=== PATIENT | female | born 1980 | race Caucasian/White ===

== ENCOUNTER → 2016-10-13 08:06 | Outpatient (CLI) | payer MEDICARE ==
--- NOTE | 2016-10-13 09:45 | NUR ---
Nutrition education for bariatric surgery: S: Pt states she has tried several prescription diet pills with limited success. Pt was unable to keept he weight off when she stopped taking the pills. Pt reports losing 100# during a time of great stress in her life; however, again she was unable to keep the lost weight off. Pt states she is following a 1500 kcal meal plan and walking now and has lost 10# in 2 weeks. Pt states she is not drinking sugary drinks. Pt is drinking water. Pts frequently craves pizza and ice cream and states she is trying not to eat these foods. Pts michael is supporting her on this weight loss journey. O: 36 year old female Ht: 5'4" Wt: 310# IBW: 120# +/-10% BMI: 53.2 PMH: Asthma, varicose veins, spinal stenosis Goal wt: 200# A: Pt has made some good changes to her eating habits and is now walking most days of the week. Pt has lost 10# and seems to be determined to keep working on losing weight before surgery. Reviewe pre/post of diet. Reviewed sample menus; protein supplements; stomach size and pouch stretching; no sweets/no carbonated drinks/no alcohol/no straws; no drinking with meals; staying hydrated with sips of water between meals. Pt with good understanding of information provided. Questions answered. Pt has realistice expectations for weight loss. Pt verbalizes understanding of all diet changes pre/post op. Pt also verbalizes a willingness to continue to participate in physical activity. Pt appears to have a high motivation to make the necessary diet changes to be successful with alf weight loss. P: Provided pt with printed diet information and RDN name and phone number. RDN will be available if needed. Thank you for the consult.
== END ==
LOC: D.FANS 08:06
DX: Z01.818 Encounter for other preprocedural examination (principal)

== ENCOUNTER → 2016-12-02 09:50 | Outpatient (CLI) | payer MEDICARE ==
[2016-12-02 10:52] LABS: BASOPHILS 0.5 % (0-2); EOSINOPHILS 1.8 % (0-7); HEMATOCRIT 40.3 % (36.0-48.0); HEMOGLOBIN 13.4 g/dL (12-16); IMMATURE GRANULOCYTES 0.2 % (0-5); LYMPHOCYTES 20.8 % (15-50); MCH 31.5 pg (26.0-34.0); MCHC 33.3 g/dL (31.0-37.0); MCV 94.6 fL (80.0-100.0); MEAN PLATELET VOLUME 10.9 fL (7.4-10.4); MONOCYTES 7.8 % (2-11); NEUTROPHILS 68.9 % (40-80); PLATELET COUNT 150 10x3/uL (130-400); RBC 4.26 10x6/uL (4.00-5.40); WBC 6.1 10x3/uL (4.8-10.8)
[2016-12-02 11:15] LABS: ALBUMIN 3.1 g/dL (3.4-5.0); ANION GAP 11.3 mmol/L (8-16); BILIRUBIN - DIRECT 0.09 mg/dL (0.00-0.30); BILIRUBIN - INDIRECT 0.22 mg/dL (0.00-1.00); BILIRUBIN - TOTAL 0.31 mg/dL (0.2-1.3); CALCIUM 8.6 mg/dL (8.5-10.1); CARBON DIOXIDE 25.7 mmol/L (21.0-32.0); CHOL - HDL RATIO 3.1 ratio (2.3-4.1); CREATININE - SERUM 0.9 mg/dL (0.6-1.3); LDL-HDL RATIO 1.9 ratio (1.5-3.5); PROTEIN - SERUM 7.3 g/dL (6.4-8.2); T4 THYROXINE 8.7 ug/dL (4.7-13.3); THYROID STIMULATING HORMONE 1.59 uIU/mL (0.36-3.74)
[2016-12-02 11:23] LABS: HELICOBACTER PYLORI IGG NEGATIVE (NEGATIVE)
[2016-12-03 09:17] LABS: FOLATE (FOLIC ACID) - SERUM >20.0 ng/mL (>3.0)
[2016-12-03 11:19] LABS: HELICOBACTER PYLORI IGM AB 5.4 units (0.0-8.9)
== END | disposition home or self-care (01) ==
LOC: D.LAB 09:50
PROVIDERS: Surgery
DX: Z00.00 Encounter for general adult medical examination without abnormal findings (principal); K21.9 Gastro-esophageal reflux disease without esophagitis; E78.5 Hyperlipidemia, unspecified; I10 Essential (primary) hypertension; E66.01 Morbid (severe) obesity due to excess calories

== ENCOUNTER → 2016-12-03 10:30 | Outpatient (CLI) | payer MEDICARE | END | disposition home or self-care (01) | LOC: D.RT 10:30 | DX: J45.909 Unspecified asthma, uncomplicated (principal) ==

== ENCOUNTER → 2017-01-11 08:29 | Outpatient (CLI) | payer MEDICARE, MEDICAID ==
[~2017-01-11 08:29] MED LIST: BREO ELLIPTA 11 EACH INH; BUPROPION XL150 MG PO; BUSPAR5 MG PO; ESTRACE2 MG PO; FLUTICASONE PRO16 GM NASAL; FUROSEMIDE20 MG PO; HYDROCODON-ACE1 EAC7 PO; LYRICA100 MG PO; LYRICA75 MG PO; NIZORAL 2 % CRE15 GM TOPICAL; OMEPRAZOLE40 MG PO; PAXIL40 MG PO; TOPAMAX50 MG PO; TRAZODONE HCL50 MG PO; TYLENOL W/CODEI1 TAB PO; VENTOLIN HFA18 GM INH; ZOCOR10 MG PO; ZOFRAN ODT4 MG/UDTAB PO; ZYPREXA10 MG PO
[2017-03-10 18:00] VITALS: BMI 58.3
== END | disposition home or self-care (01) ==
LOC: D.RAD 08:29
DX: E66.01 Morbid (severe) obesity due to excess calories (principal)

== ENCOUNTER 2017-01-19 06:03 | Day surgery (SDC) | payer MEDICARE, MEDICAID ==
[2017-01-19] MEDS ORDERED: LYRICA100 MG PO (06:54)
[2017-01-19] MEDS ORDERED: TYLENOL W/CODEI1 TAB PO (06:55)
[2017-01-19] MEDS ORDERED: ESTRACE2 MG PO (06:56)
[2017-01-19] MEDS ORDERED: OMEPRAZOLE40 MG PO (06:56)
[2017-01-19] MEDS ORDERED: FLUTICASONE PRO16 GM NASAL (06:56)
[2017-01-19] MEDS ORDERED: NIZORAL 2 % CRE15 GM TOPICAL (06:57)
[2017-01-19] MEDS ORDERED: VENTOLIN HFA18 GM INH (06:57)
[2017-01-19] MEDS ORDERED: TOPAMAX50 MG PO (06:58)
[2017-01-19] MEDS ORDERED: FUROSEMIDE20 MG PO (06:58)
[2017-01-19] MEDS ORDERED: BUSPAR5 MG PO (06:58)
[2017-01-19] MEDS ORDERED: ZYPREXA10 MG PO (06:58)
[2017-01-19] MEDS ORDERED: TRAZODONE HCL50 MG PO (06:59)
[2017-01-19] MEDS ORDERED: BUPROPION XL150 MG PO (06:59)
[2017-01-19] MEDS ORDERED: PAXIL40 MG PO (06:59)
[2017-01-19] MEDS ORDERED: LYRICA75 MG PO (07:00)
[2017-01-19] MEDS ORDERED: BREO ELLIPTA 11 EACH INH (07:00)
[2017-01-19 07:05] VITALS: BMI 57.3
[2017-01-19 07:22] LABS: HEMATOCRIT 34.8 % (36.0-48.0); HEMOGLOBIN 11.3 g/dL (12-16); MCH 31.7 pg (26.0-34.0); MCHC 32.5 g/dL (31.0-37.0); MCV 97.5 fL (80.0-100.0); MEAN PLATELET VOLUME 11.1 fL (7.4-10.4); RBC 3.57 10x6/uL (4.00-5.40); RDW 13.5 % (11.5-14.5); WBC 5.1 10x3/uL (4.8-10.8)
--- NOTE | 2017-01-19 10:38 | NUR ---
1025 DISCHARGE INSTRUCTIONS COMPLETE. PT HAS NO QUESTIONS OR CONCERNS AT THIS TIME. PT WAS VERY DROWSY AFTER KEEPING 30MIN. KEPT AN ADDITIONAL HOUR FOR PT TO DRINK COFFEE AND SODA BEFORE LEAVING. PT ESCORTED OUT BY VOLUNTEER.
--- NOTE | 2017-01-19 12:25 | OP ---
PATIENT NAME: PAVON MEDICAL RECORD: [id number] :76 LOCATION:D.OPS ADMISSION DATE: SURGEON: ABHINAV CLEMENTS MD DATE OF OPERATION: 01/19/2017 SURGEON: Abhinav Clements MD PREOPERATIVE DIAGNOSES: 1. Gastroesophageal reflux disease. 2. Essential hypertension. 3. Body mass index 50 to 59.9. 4. Morbid obesity. POSTOPERATIVE DIAGNOSES: 1. Gastroesophageal reflux disease. 2. Essential hypertension. 3. Body mass index 50 to 59.9. 4. Morbid obesity. PROCEDURE PERFORMED: EGD with biopsy. ANESTHESIA: Total intravenous anesthesia. COMPLICATIONS: None. SPECIMENS: 1. Duodenum. 2. Antrum. 3. Stomach. 4. GE junction. Case was contaminated. ESTIMATED BLOOD LOSS: Minimal. OPERATIVE COURSE: After consent was obtained, the patient was taken to the endoscopy suite. A timeout was taken to confirm the correct patient and procedure. Hurricaine Clayton was administered. A bite block was placed. The patient was placed in the left lateral decubitus position, total intravenous anesthesia was given. The scope was passed through the bite block, it was passed posterior to the epiglottis and under direct endoscopic vision, it was advanced through the esophagus and into the stomach. The stomach was insufflated. The scope was then passed through the pylorus into the duodenum. The duodenum appeared within normal limits. Multiple duodenal biopsies were taken. The scope was withdrawn to the pylorus. The prepyloric antral region was inspected. There was some mild antritis noted. Multiple cold biopsies were taken of the antrum. The stomach was inspected. There was some minimal gastritis noted. Multiple biopsies were taken of the stomach body. The scope was retroflexed. There was a small hiatal hernia noted. The scope was withdrawn to the level of the GE junction. There was some mild grade I linear ulcerations of the esophagus. There was minimal abnormality of the Z line. Multiple biopsies were taken of the GE junction. The scope was reinserted into the stomach. The stomach was desufflated. Next, the esophagus was examined upon withdrawal of the scope. There were no abnormalities of the esophagus identified. The scope was withdrawn. At the end of the case, all needle and OPERATIVE REPORT [id number] PAVON instrument counts were correct. No complications occurred. The patient tolerated the procedure well and was transferred to the recovery room in satisfactory condition. TRANSINT:[id number] Voice Confirmation ID: [id number] DOCUMENT ID: [id number] ABHINAV CLEMENTS MD at 1225 CC: [id number] DICTATION DATE: 01/19/17826 ACCOUNT DEVELOPER: 01/19/17 1108 [facility] [place] 01/19/17 [place] [id number]
[2017-03-08] MEDS ORDERED: ZOCOR10 MG PO (12:40)
== END 2017-01-19 10:25 | disposition home or self-care (01) ==
LOC: D.OPS 06:03
PROVIDERS: Surgery
DX: K21.9 Gastro-esophageal reflux disease without esophagitis (principal); E66.01 Morbid (severe) obesity due to excess calories; Z68.43 Body mass index [BMI] 50.0-59.9, adult; Z01.812 Encounter for preprocedural laboratory examination; J45.909 Unspecified asthma, uncomplicated

== ENCOUNTER 2017-03-09 08:00 | Inpatient (IN) | payer MEDICARE, MEDICAID ==
[2017-03-08 13:30] LABS: HEMATOCRIT 38.3 % (36.0-48.0); HEMOGLOBIN 12.4 g/dL (12-16); MCH 32.1 pg (26.0-34.0); MCHC 32.4 g/dL (31.0-37.0); MCV 99.2 fL (80.0-100.0); MEAN PLATELET VOLUME 11.3 fL (7.4-10.4); RBC 3.86 10x6/uL (4.00-5.40); RDW 13.4 % (11.5-14.5); WBC 5.6 10x3/uL (4.8-10.8)
[2017-03-08 13:42] LABS: ANION GAP 12.1 mmol/L (8-16); CALCIUM 8.9 mg/dL (8.5-10.1); CARBON DIOXIDE 25.8 mmol/L (21.0-32.0); POTASSIUM - SERUM 4.9 mmol/L (3.5-5.1)
[~2017-03-09] VITALS: Ht 162.6 cm; Wt 154.1 kg
[~2017-03-09 08:00] MED LIST changes: -HYDROCODON-ACE1 EAC7 PO; -ZOFRAN ODT4 MG/UDTAB PO
[2017-03-10 10:56] VITALS: BP 126/82; BMI 58.5
[2017-03-10 17:40] VITALS: BP 153/92
[2017-03-10 17:45] VITALS: BP 153/92
[2017-03-10 18:00] VITALS: BP 137/85; BP 153/92; Ht 162.6 cm; Wt 154.1 kg
[2017-03-10 18:15] VITALS: BP 126/90
[2017-03-10 18:30] VITALS: BP 136/94
[2017-03-11 04:00] VITALS: BP 120/76
[2017-03-11 05:28] LABS: BASOPHILS 0 % (0-2); EOSINOPHILS 0 % (0-7); HEMATOCRIT 38.5 % (36.0-48.0); HEMOGLOBIN 12.4 g/dL (12-16); IMMATURE GRANULOCYTES 0.1 % (0-5); LYMPHOCYTES 7.3 % (15-50); MCH 31.7 pg (26.0-34.0); MCHC 32.2 g/dL (31.0-37.0); MCV 98.5 fL (80.0-100.0); MEAN PLATELET VOLUME 12.1 fL (7.4-10.4); MONOCYTES 4.4 % (2-11); NEUTROPHILS 88.2 % (40-80); PLATELET COUNT 152 10x3/uL (130-400); RBC 3.91 10x6/uL (4.00-5.40); RDW 13.2 % (11.5-14.5); WBC 8.5 10x3/uL (4.8-10.8)
[2017-03-11 06:01] LABS: ALBUMIN 2.9 g/dL (3.4-5.0); ANION GAP 11.2 mmol/L (8-16); BILIRUBIN - TOTAL 0.42 mg/dL (0.2-1.3); CALCIUM 8.8 mg/dL (8.5-10.1); CARBON DIOXIDE 27.6 mmol/L (21.0-32.0); PROTEIN - SERUM 6.8 g/dL (6.4-8.2)
[2017-03-11 06:10] LABS: POTASSIUM - SERUM 4.8 mmol/L (3.5-5.1)
[2017-03-11 08:21] VITALS: BP 153/79
[2017-03-11] MEDS ORDERED: HYDROCODON-ACE1 EAC7 PO (09:54)
[2017-03-11] MEDS ORDERED: ZOFRAN ODT4 MG/UDTAB PO (09:54)
[2017-03-11 11:50] VITALS: BP 182/99
== END 2017-03-11 15:49 | disposition home or self-care (01) | DRG 621 ==
LOC: D.SDCHOLD 08:00 → D.MS 03-10 05:17 → D.SDCHOLD 03-10 09:15 → D.MS 03-10 17:26
PROVIDERS: Anesthesiology; Surgery
PROC: 0DB64Z3 Excision of Stomach, Percutaneous Endoscopic Approach, Vertical (ICD-10-PCS; principal; 2017-03-10 12:00)
DX: E66.01 Morbid (severe) obesity due to excess calories (principal); Z68.43 Body mass index [BMI] 50.0-59.9, adult; I10 Essential (primary) hypertension; M19.90 Unspecified osteoarthritis, unspecified site